=== PATIENT | female | born 1965 | race Caucasian/White ===

== ENCOUNTER 2021-08-04 21:59 | Emergency (ER) | payer MEDICAID, OTHER ==
[2021-08-04] MEDS ORDERED: predniSONE 20 MG Tab PO ONE (22:28)
[2021-08-04] MEDS ORDERED: diphenhydrAMINE 50 MG/ML SDV IM ONE (22:28)
--- NOTE | 2021-08-04 22:34 | EDM.PDOC ---
ED HPI GENERAL MEDICAL PROBLEM - General Chief Complaint: Skin Complaint Stated Complaint: SKIN COMPLAINT/SWOLLEN FACE Time Seen by Provider: 08/04/21 22:15 Source of Information: Reports: Patient History Limitations: Reports: No Limitations - History of Present Illness INITIAL COMMENTS - FREE TEXT/NARRATIVE: Patient is a 55-year-old female with no significant past medical history presenting with a chief complaint of redness and swelling to her face. Symptoms started today. Patient denies any itchiness or pain. Denies any new lotions or creams to her face but states she does work with a lot of household [employer] due to her job. She states this may be an exposure there is new to her. Otherwise, patient is denying any tongue swelling, difficulty swallowing, change in voice, rash on her remainder of her body. No interventions performed prior to arrival other than NSAIDs but these did not improve her symptoms. No prior history of similar symptoms. 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 - Infectious Disease History Infectious Disease History: Reports: Chicken Pox, Mumps Social & Family History - Tobacco Use Tobacco Use Status *Q: Current Every Day Tobacco User Years of Tobacco use: 30 Packs/Tins Daily: 0.5 - Caffeine Use Caffeine Use: Reports: Coffee, Soda - Recreational Drug Use Recreational Drug Use: Yes Recreational Drug Type: Reports: Marijuana/Hashish Other Recreational Drug Type: few ties per week ED ROS GENERAL - Review of Systems Review Of Systems: See Below Free Text/Narrative/Comment: In addition to that documented in the HPI above, the additional ROS was obtained: Constitutional: Denies fevers or chills Eyes: Denies vision changes ENMT: Denies sore throat CV: Denies chest pain Resp: Denies SOB GI: Denies vomiting or diarrhea : Denies painful urination MSK: Denies recent trauma Skin: Per HPI Neuro: Denies new numbness or tingling or weakness Endocrine: Denies unexpected weight loss Heme: Denies bleeding disorders ED EXAM, SKIN/RASH Exam: See Below Text/Narrative:: I have reviewed the triage vital signs Const: Well nourished, well developed, appears stated age Eyes: Pupils Equal and reactive to light bilaterally, no conjunctival injection HENT: No signs of trauma or swelling, Neck supple without meningismus CV: Regular Rate Rhythm, Warm, well-perfused extremities RESP: Unlabored respiratory effort MSK: No gross deformities appreciated Skin: Diffuse redness with some facial swelling. Symmetric in appearance. No involvement of conjunctiva, neck, remainder of trunk or extremities. 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 Sensation and motor function of extremities grossly intact. Psych: Appropriate mood and affect. Course - Vital Signs Last Recorded V/S: Last Vital Signs Temp 37.2 C 08/04/21 22:10 Pulse 90 08/04/21 22:10 Resp 20 08/04/21 22:10 BP 127/58 L 08/04/21 22:10 Pulse Ox 95 08/04/21 22:10 - Orders/Labs/Meds Meds: Medications Discontinued Medications Generic Name Dose Route Start Last Admin Trade Name Grisel PRN Reason Stop Dose Admin Diphenhydramine HCl 25 mg 08/04/21 22:28 08/04/21 22:39 Diphenhydramine 50 Mg/Ml Sdv IM 08/04/21 22:29 25 mg ONETIME ONE Administration Prednisone 60 mg 08/04/21 22:28 08/04/21 22:40 Prednisone 20 Mg Tab PO 08/04/21 22:29 60 mg ONETIME ONE Administration Departure - Departure Time of Disposition: 22:33 Disposition: Home, Self-Care 01 Clinical Impression: Allergic contact dermatitis - Discharge Information Prescriptions: Hydrocortisone [Hydrocortisone 2.5% Crm] 1 applic TOP DAILY 7 Days #30 gm Instructions: Contact Dermatitis, [id number] Referrals: PCP,None [Primary Care Provider] - Forms: ED Department Discharge Additional Instructions: Use 25 mg of Benadryl every 8 hours. Also apply steroid cream to affected area but no longer than 7 days duration. Return to the emergency room for difficulty swallowing, difficulty breathing or any other emergent concerns. Otherwise, plan on following up with your primary care physician in the next several days. Sepsis Event Note (ED) - Focused Exam Vital Signs: Vital Signs Temp Pulse Resp BP Pulse Ox 08/04/21 22:10 37.2 C 90 20 127/58 L 95 - Assessment/Plan Assessment:: Patient presents to the emergency room with swelling to her face. There does not appear to be any evidence of anaphylaxis, infectious process or any other emergency. Possible contact dermatitis that is allergic in nature. Patient given prednisone x1 and Benadryl intramuscularly. Will be given short course of topical steroids. Return precautions discussed as usual. Patient agrees with plan. Discharged in stable condition.
== END 2021-08-04 22:49 | disposition home or self-care (01) ==
LOC: JD.ED 21:59
DX: L23.9 Allergic contact dermatitis, unspecified cause (principal); Z72.0 Tobacco use
CPT/HCPCS: 96372; 99283; J1200; J7512

== ENCOUNTER 2021-08-13 15:54 | Emergency (ER) | payer MEDICAID ==
--- NOTE | 2021-08-13 16:33 | EDM.PDOC ---
ED HPI GENERAL MEDICAL PROBLEM - General Chief Complaint: General Stated Complaint: FACIAL SWELLING Time Seen by Provider: 08/13/21 16:03 Source of Information: Reports: Patient, RN Notes Reviewed, Significant Other History Limitations: Reports: No Limitations - History of Present Illness INITIAL COMMENTS - FREE TEXT/NARRATIVE: Patient is a 55-year-old female who presents to the ER for the main complaint of ongoing facial swelling, and redness to her chest. Patient was seen here on August 04, was thought to have may be an atopic dermatitis, and was sent home with topical steroids. Patient does recount that she has been seen at the [facility] as well. She does not have a regular care provider at this time. States that she has been feeling quite ill for the last 9 or 10 days as well. Feels generalized lethargy. Her facial redness/swelling started with what they thought was a "spider bite on her left cheek", and everything seems to be going downhill since then. She has been having increasing redness to her upper chest, to about the nipple line. This is more violaceous in coloring versus actual erythema. However there is an area on her right chest that does have almost a vesicular type rash. It is very painful to the touch but she states her whole chest is kind of tender. She does have more tenderness noted to this vesicular type rash. Patient has multiple complaints and/or maladies at today's visit however that chest seems to be her her most worrisome issue. 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 ED EXAM, GENERAL - Physical Exam Exam: See Below Exam Limited By: No Limitations General Appearance: Alert, WD/WN, No Apparent Distress Respiratory/Chest: No Respiratory Distress, Lungs Clear, Normal Breath Sounds, No Accessory Muscle Use Cardiovascular: Normal Peripheral Pulses, Regular Rate, Rhythm, No Edema Peripheral Pulses: 2+: Radial (L), Radial (R) Extremities: Normal Inspection, Normal Capillary Refill Neurological: Alert, Oriented, Normal Cognition, No Motor/Sensory Deficits Psychiatric: Normal Affect, Normal Mood Skin Exam: Warm, Dry, Erythema (Violaceous in color to the patient's anterior chest to about the nipple line, up to the clavicles. She does have somewhat of a vesicular type rash to her right mid chest as well, seems to be more tender than the rest of the chest.), Increased Warmth Course - Vital Signs Last Recorded V/S: Last Vital Signs Temp 98.3 F 08/13/21 16:01 Pulse 86 08/13/21 16:01 Resp 18 08/13/21 16:01 BP 138/61 08/13/21 16:01 Pulse Ox 100 08/13/21 16:01 - Orders/Labs/Meds Orders: Active Orders 24 hr Category Date Time Status Peripheral IV Care [RC] . DIRECTED Care 08/13/21 16:34 Ordered Sodium Chloride 0.9% [Saline Flush] Med 08/13/21 16:34 Ordered 10 ml FLUSH ASDIRECTED PRN Peripheral IV Insertion Adult [OM.PC] Routine Oth 08/13/21 16:34 Ordered Medication Orders Sodium Chloride (Sodium Chloride 0.9% 10 Ml Syringe) 10 ml FLUSH ASDIRECTED PRN PRN Reason: Keep Vein Open Labs: Laboratory Tests 08/13/21 08/13/21 08/13/21 Range/Units 17:05 17:45 17:45 WBC 12.79 H (3.98-10.04) K/mm3 RBC 5.66 H (3.98-5.22) M/mm3 Hgb 16.4 H (11.2-15.7) gm/dl Hct 49.3 H (34.1-44.9) % MCV 87.1 (79.4-94.8) fl MCH 29.0 (25.6-32.2) pg MCHC 33.3 (32.2-35.5) g/dl RDW Std Deviation 43.6 (36.4-46.3) fL Plt Count 313 (182-369) K/mm3 MPV 10.1 (9.4-12.3) fl Neut % (Auto) 73.9 H (34.0-71.1) % Lymph % (Auto) 16.2 L (19.3-51.7) % [place] % (Auto) 8.5 (4.7-12.5) % Eos % (Auto) 0.5 L (0.7-5.8) Baso % (Auto) 0.3 (0.1-1.2) % Neut # (Auto) 9.44 H (1.56-6.13) K/mm3 Lymph # (Auto) 2.07 (1.18-3.74) K/mm3 [place] # (Auto) 1.09 H (0.24-0.36) K/mm3 Eos # (Auto) 0.07 (0.04-0.36) K/mm3 Baso # (Auto) 0.04 (0.01-0.08) K/mm3 Sodium 132 L (136-145) mEq/L Potassium 3.8 (3.5-5.1) mEq/L Chloride 94 L (98-107) mEq/L Carbon Dioxide 32 (21-32) mEq/L Anion Gap 9.8 (5-15) BUN 11 (7-18) mg/dL Creatinine 0.8 (0.55-1.02) mg/dL Est Cr Clr Drug Dosing 68.61 mL/min Estimated GFR (MDRD) > 60 (>60) mL/min BUN/Creatinine Ratio 13.8 L (14-18) Glucose 328 H (70-99) mg/dL Hemoglobin A1c ( - 5.6) % Calcium 8.5 (8.5-10.1) mg/dL Total Bilirubin 0.4 (0.2-1.0) mg/dL AST 15 (15-37) U/L ALT 23 (14-59) U/L Alkaline Phosphatase 150 H (46-116) U/L C-Reactive Protein 14.8 H* (<1.0) mg/dL Total Protein 7.0 (6.4-8.2) g/dl Albumin 2.3 L (3.4-5.0) g/dl Globulin 4.7 gm/dL Albumin/Globulin Ratio 0.5 L (1-2) Urine Color (Yellow) Urine Appearance (Clear) Urine pH (5.0-8.0) Ur Specific [place] (1.005-1.030) Urine Protein (Negative) Urine Glucose (UA) (Negative) Urine Ketones (Negative) Urine Occult Blood (Negative) Urine Nitrite (Negative) Urine Bilirubin (Negative) Urine Urobilinogen (0.2-1.0) Ur Leukocyte Esterase (Negative) Urine RBC (0-5) /hpf Urine WBC (0-5) /hpf Ur Epithelial Cells (0-5) /hpf Urine Bacteria (FEW) /hpf Urine Mucus (FEW) /hpf Influenza Type A RNA Negative (NEGATIVE) Influenza Type B RNA Negative (NEGATIVE) SARS-CoV-2 RNA (ANDREW) Negative (NEGATIVE) 08/13/21 08/13/21 Range/Units 17:45 18:47 WBC (3.98-10.04) K/mm3 RBC (3.98-5.22) M/mm3 Hgb (11.2-15.7) gm/dl Hct (34.1-44.9) % MCV (79.4-94.8) fl MCH (25.6-32.2) pg MCHC (32.2-35.5) g/dl RDW Std Deviation (36.4-46.3) fL Plt Count (182-369) K/mm3 MPV (9.4-12.3) fl Neut % (Auto) (34.0-71.1) % Lymph % (Auto) (19.3-51.7) % [place] % (Auto) (4.7-12.5) % Eos % (Auto) (0.7-5.8) Baso % (Auto) (0.1-1.2) % Neut # (Auto) (1.56-6.13) K/mm3 Lymph # (Auto) (1.18-3.74) K/mm3 [place] # (Auto) (0.24-0.36) K/mm3 Eos # (Auto) (0.04-0.36) K/mm3 Baso # (Auto) (0.01-0.08) K/mm3 Sodium (136-145) mEq/L Potassium (3.5-5.1) mEq/L Chloride (98-107) mEq/L Carbon Dioxide (21-32) mEq/L Anion Gap (5-15) BUN (7-18) mg/dL Creatinine (0.55-1.02) mg/dL Est Cr Clr Drug Dosing mL/min Estimated GFR (MDRD) (>60) mL/min BUN/Creatinine Ratio (14-18) Glucose (70-99) mg/dL Hemoglobin A1c 10.6 H ( - 5.6) % Calcium (8.5-10.1) mg/dL Total Bilirubin (0.2-1.0) mg/dL AST (15-37) U/L ALT (14-59) U/L Alkaline Phosphatase (46-116) U/L C-Reactive Protein (<1.0) mg/dL Total Protein (6.4-8.2) g/dl Albumin (3.4-5.0) g/dl Globulin gm/dL Albumin/Globulin Ratio (1-2) Urine Color Yellow (Yellow) Urine Appearance Clear (Clear) Urine pH 6.0 (5.0-8.0) Ur Specific [place] 1.025 (1.005-1.030) Urine Protein Trace H (Negative) Urine Glucose (UA) 2+ H (Negative) Urine Ketones 2+ H (Negative) Urine Occult Blood 1+ H (Negative) Urine Nitrite Negative (Negative) Urine Bilirubin Negative (Negative) Urine Urobilinogen 4.0 H (0.2-1.0) Ur Leukocyte Esterase Negative (Negative) Urine RBC 40-50 H (0-5) /hpf Urine WBC 30-40 H (0-5) /hpf Ur Epithelial Cells 10-20 H (0-5) /hpf Urine Bacteria Moderate H (FEW) /hpf Urine Mucus Not seen (FEW) /hpf Influenza Type A RNA (NEGATIVE) Influenza Type B RNA (NEGATIVE) SARS-CoV-2 RNA (ANDREW) (NEGATIVE) Meds: Medications Generic Name Dose Route Start Last Admin Trade Name Freq PRN Reason Stop Dose Admin Sodium Chloride 10 ml 08/13/21 16:34 Sodium Chloride 0.9% 10 Ml Syringe FLUSH ASDIRECTED PRN Keep Vein Open Discontinued Medications Generic Name Dose Route Start Last Admin Trade Name Freq PRN Reason Stop Dose Admin Ceftriaxone Sodium 1 gm/ 0 gm 08/13/21 18:00 08/13/21 18:30 Lidocaine HCl 2.1 ml IM 08/13/21 18:01 2.1 inj ONETIME ONE Administration Ceftriaxone Sodium 2 gm/ 100 mls @ 200 mls/hr 08/13/21 16:34 08/13/21 18:23 Sodium Chloride IV 08/13/21 17:03 Not Given ONETIME ONE - Re-Assessments/Exams Free Text/Narrative Re-Assessment/Exam: 08/13/21 16:37 Patient presents to the ER for the evaluation of her facial/chest redness, I did have Dr. Townsend just take a peek at her chest due to the color and extensive nature of this rash/discoloration over her chest, he does believe it could be infectious as well, and I do tend to agree, we will go ahead get IV started, get some basic labs, give her some Rocephin for initial management. Likely place her on doxycycline. Patient will also have a urinalysis taken as she was coming planing of some frequency with urination that is not typical for her. 08/13/21 18:00 Apparently the patient is a very hard IV start, we were able to get labs, CBC does demonstrate a white count mildly elevated at 12.79 with 73% neutrophils on the auto differential. Influenza and Covid were negative for today's visit. Metabolic panel still pending however with a white count being slightly elevated, likely that this could be a skin infection so we will go ahead and do 1 g IM Rocephin versus 2 g IV and get her started on oral doxycycline and have her follow-up in clinic hopefully sometime this week to make sure symptoms are getting better. 08/13/21 18:24 Patient's blood sugar was elevated at 328. Several attempts at getting an IV were unsuccessful, we will have the patient try to drink some oral fluids, and do low-carb meal over the next day or 2 and have her follow-up with her provider in clinic for recheck of her labs on hopefully Sunday or Sunday. Departure - Departure Time of Disposition: 18:02 Disposition: Home, Self-Care 01 Condition: Good Clinical Impression: Cellulitis of chest wall, New onset type 2 diabetes mellitus - Discharge Information *PRESCRIPTION DRUG MONITORING PROGRAM REVIEWED*: No *COPY OF PRESCRIPTION DRUG MONITORING REPORT IN PATIENT JEFF: No Prescriptions: predniSONE 20 mg PO ASDIRECTED #15 tab Doxycycline [Vibramycin] 100 mg PO BID 7 Days #14 tab Instructions: Cellulitis, Adult, [id number], Diabetes Mellitus Basics, Carbohydrate Counting for Diabetes Mellitus, Adult Referrals: PCP,None [Primary Care Provider] - Forms: ED Department Discharge Additional Instructions: You were evaluated in the ER today regarding your reddened upper chest. It does appear that you have a cellulitis. Your CBC did demonstrate a modestly elevated white count which is suggestive of ongoing infection. You were given an IM antibiotic for initial management and will be started on oral antibiotic, doxycycline 100 mg twice daily x7 days. Please take as prescribed until the course is done or told otherwise by different provider. Please note that this antibiotic will take at least 48 hours to start working appropriately. This medication was electronically sent to the [place] pharmacy located in the [facility] [employer] store. You have also been prescribed a round of oral steroids you need to take as directed. This will be 1 tablet 2 times a day for the first 5 days then 1 tablet once daily for the last 5 days. Your labs were also consistent with new onset diabetes. Management of this will be to get you started on Metformin daily. You may try to use ice packs to the area to help reduce pain/swelling. You may take 500 mg Tylenol or 600 mg ibuprofen every 6 hours as needed for further pain relief. Do not exceed 4000 mg Tylenol or 3200 mg ibuprofen in a 24-hour time span. If you do not have a primary care provider already, I recommend that you follow- up with a provider in our clinic, any family practice provider would be able to provide you with the services. Our clinic telephone number [phone], please call in the morning to obtain an appointment with the provider, for follow-up of your symptoms that prompted your ER visit today. I see also since you live in [facility], [facility] does have a clinic in [place], you may call [phone] to schedule and appointment for ongoing management. Please return to the ER at any time if your symptoms change or worsen. Sepsis Event Note (ED) - Evaluation Sepsis Screening Result: No Definite Risk - Focused Exam Vital Signs: Vital Signs Temp Pulse Resp BP Pulse Ox 08/13/21 16:01 98.3 F 86 18 138/61 100 - My Orders Last 24 Hours: My Active Orders 08/13/21 16:34 Peripheral IV Care [RC] . DIRECTED Sodium Chloride 0.9% [Saline Flush] 10 ml FLUSH ASDIRECTED PRN Peripheral IV Insertion Adult [OM.PC] Routine - Assessment/Plan Last 24 Hours: My Active Orders 08/13/21 16:34 Peripheral IV Care [RC] . DIRECTED Sodium Chloride 0.9% [Saline Flush] 10 ml FLUSH ASDIRECTED PRN Peripheral IV Insertion Adult [OM.PC] Routine
[2021-08-13] MEDS ORDERED: cefTRIAXone 2 GM in Sodium Chloride 0.9% 100 ML IV ONE (16:34)
[2021-08-13] MEDS ORDERED: Sodium Chloride 0.9% 10 ML Syringe FLUSH PRN (16:34)
[2021-08-13 17:49] LABS: CORONAVIRUS COVID-19 NAA NEGATIVE (NEGATIVE)
[2021-08-13] MEDS ORDERED: cefTRIAXone 1 GM, Lidocaine 1% 2.1 ML IM ONE ×2 (18:00)
[2021-08-13 19:33] LABS: HEMOGLOBIN A1C 10.6 %
== END 2021-08-13 19:57 | disposition home or self-care (01) ==
LOC: JD.ED 15:54
DX: L03.313 Cellulitis of chest wall (principal); E11.9 Type 2 diabetes mellitus without complications; Z20.822 Contact with and (suspected) exposure to COVID-19
CPT/HCPCS: 0240U; 36415; 80053; 81001; 83036; 85025; 86140; 96372; 99284; J0696

== ENCOUNTER 2024-06-19 17:52 | Emergency (ER) | payer MEDICAID ==
[2024-06-19 18:58] LABS: BASOPHILS PERCENT AUTO 0.4 % (0.0-1.0); EOSINOPHILS PERCENT AUTO 0.3 % (0.0-6.0); HEMATOCRIT 42.4 % (37.0-47.0); HEMOGLOBIN 14.3 gm/dl (12.0-16.0); IMMATURE GRAN ABSOLUTE AUTO 0.04 K/mm3 (0.00-0.05); IMMATURE GRAN PERCENT AUTO 0.4 % (0.0-0.4); LYMPHOCYTES ABSOLUTE AUTO 2.8 K/mm3 (1.0-4.8); LYMPHOCYTES PERCENT AUTO 25.8 % (24.0-44.0); MEAN CORPUSCULAR HEMOGLOBIN 29.9 pg (28.0-32.0); MEAN CORPUSCULAR HGB CONC 33.7 g/dl (32.0-36.0); MEAN CORPUSCULAR VOLUME 88.7 fl (83.0-99.0); MEAN PLATELET VOLUME 10.1 fl (9.4-12.3); MONOCYTES ABSOLUTE AUTO 1.6 K/mm3 (0.0-0.8); MONOCYTES PERCENT AUTO 14.6 % (0.0-8.0); NEUTROPHILS ABSOLUTE AUTO 6.4 K/mm3 (1.8-7.7); NEUTROPHILS PERCENT AUTO 58.5 % (41.0-71.0); PLATELET COUNT,PLT 159 K/mm3 (150-400); RED BLOOD CELL COUNT 4.78 M/mm3 (4.10-5.30); WHITE BLOOD CELL COUNT,WBC 10.99 K/mm3 (3.9-11.3)
[2024-06-19 19:22] LABS: A/G RATIO 0.8 (1-2); ALBUMIN 2.9 g/dl (3.4-5.0); ANION GAP 11.5 (5-15); BILIRUBIN TOTAL 1.3 mg/dL (0.2-1.0); BUN/CREATININE RATIO 11.3 (14-18); CREATININE 0.8 mg/dL (0.55-1.02); EST CRCL DRUG DOSING (CG) 66.19 mL/min; POTASSIUM,K 3.5 mEq/L (3.5-5.1); PROTEIN TOTAL,TP 6.6 g/dl (6.4-8.2)
[2024-06-19 19:34] LABS: CORONAVIRUS COVID-19 NAA NEGATIVE (NEGATIVE); INFLUENZA A NAA NEGATIVE (NEGATIVE); RESPIRATORY SYNCYTIAL VIR NAA NEGATIVE (NEGATIVE)
[2024-06-19] MEDS ORDERED: Sodium Chloride 0.9% 100 ML IV SCH (19:45)
[2024-06-19] MEDS: Iopamidol 755 Mg/ML 100 ML Bottle IVPUSH ONE (20:33)
[2024-06-19] MEDS: Sodium Chloride 0.9% 1,000 ML IV ONE (21:11)
[2024-06-19] MEDS ORDERED: Iopamidol 612 MG/ML 100 ML Bottle IVPUSH ONE (21:35)
== END 2024-06-19 23:14 | disposition home or self-care (01) ==
LOC: JD.ED 17:52
DX: I30.9 Acute pericarditis, unspecified (principal); Z79.4 Long term (current) use of insulin; Z79.899 Other long term (current) drug therapy
CPT/HCPCS: 0241U; 36415; 71046; 71275; 74177; 80053; 84484; 85025; 85379; 93005; 96360; 96361; 99285; J7030; Q9967

== ENCOUNTER 2024-07-29 10:02 | Emergency (ER) | payer OTHER, MEDICAID | END 2024-07-29 14:37 | disposition EXP | LOC: EDBD → EDUNIT# → JD.ED 10:02 | DX: I46.9 Cardiac arrest, cause unspecified (principal); I10 Essential (primary) hypertension; E11.9 Type 2 diabetes mellitus without complications; Z79.84 Long term (current) use of oral hypoglycemic drugs; Z79.899 Other long term (current) drug therapy; V89.2XXA Person injured in unspecified motor-vehicle accident, traffic, initial encounter | CPT/HCPCS: 99285 ==